=== PATIENT | female | born 2005 | race Caucasian/White ===

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

== ENCOUNTER 2024-03-27 10:43 | Outpatient (REF) | payer MEDICAID, SELFPAY ==
[2024-03-27 15:09] LABS: Anion Gap 8.6 mmol/L (3-11); BUN 11 mg/dL (7-18); CO2 27.4 mmol/L (21.0-32.0); CREATININE 0.8 mg/dL (0.55-1.02); Calcium 9.6 mg/dL (8.5-10.1); Chloride 106 mmol/L (98-107); Estimated GFR 108.11 (mL/min/1.73m2); Glucose 89 mg/dL (74-106); Potassium 4.3 mmol/L (3.5-5.1); Sodium 142 mmol/L (136-145)
== END 2024-03-27 10:44 | disposition home or self-care (01) ==
LOC: NCHCN 10:43
PROVIDERS: PCP Nurse Practitioner Family; Visit Provider Nurse Practitioner Family
DX: Q60.0 Renal agenesis, unilateral (principal)
CPT/HCPCS: 80048

== ENCOUNTER 2025-04-02 13:25 | Outpatient (REF) | payer MEDICAID, SELFPAY ==
--- NOTE | 2025-04-02 12:35 | PAPFT_PTH ---
PATIENT: Riana Cruz LOC: [facility] U#:[id number] AGE/SX: 20/F ROOM: RE04/02/[address]: Riana Khan : 2005 BED: DIS: 04/02/2025 SPEC #: [id number] RECD: 04/02/25 18:02 STATUS: YULIANA BASS #: [id number] KAREN: 04/02/25 12:[address]: Riana Khan DEPT: [facility] Cytology RECD BY: Gissell Woods Tissues: 1 - CX/ENDOCX FOR PAP SMEARS Procedures: PAP THIN PREP/[facility] Screening Comments: [id number] (CHLAMYDIA/GC)
[2025-04-02 16:06] LABS: Anion Gap 9.7 mmol/L (3-11); BUN 11 mg/dL (9-23); CO2 26.3 mmol/L (20.0-31.0); Calcium 9.4 mg/dL (8.3-10.6); Chloride 105 mmol/L (98-107); Glucose 84 mg/dL (74-106); Potassium 3.9 mmol/L (3.5-5.1); Sodium 141 mmol/L (136-145)
[2025-04-02 17:27] LABS: Microalb ug/mg Crea 5.2 ug/mg Cr
[2025-04-03 12:11] LABS: Chlamydia Result Negative (Negative); GC Result Negative (Negative)
== END 2025-04-02 13:26 | disposition home or self-care (01) ==
LOC: NCHCN 13:25
PROVIDERS: PCP Nurse Practitioner Family; Visit Provider Nurse Practitioner Family
DX: Z00.00 Encounter for general adult medical examination without abnormal findings (principal); Q60.0 Renal agenesis, unilateral; Z12.4 Encounter for screening for malignant neoplasm of cervix
CPT/HCPCS: 80048; 87491; 87591; 88142; 82043; 82570